=== PATIENT | female | born 1975 | race Caucasian/White ===

== ENCOUNTER 2017-10-03 19:10 | Emergency (ER) | payer OTHER ==
[2017-10-03] MEDS: METHYLPREDNISOLONE 125 MG INJ IV (19:46)
[2017-10-03] MEDS: ONDANSETRON 4 MG INJ IV ×2 (19:46→20:55)
[2017-10-03] MEDS: HYDROmorphONE 0.5 MG/0.5 ML SYG IV ×2 (19:46→20:52)
[2017-10-03] MEDS: SOD CHLORIDE 0.9% 1,000 ML IV (19:47)
[2017-10-03 19:48] LABS: ADD MAN DIFF? NO
[2017-10-03 19:50] LABS: BASOPHILS % 0.5 % (0.0-2.0); EOSINOPHILS # 0.2 10^3/ul (0.0-0.5); EOSINOPHILS % 2.6 % (0.0-7.0); HEMATOCRIT 38.9 % (37.0-47.0); HEMOGLOBIN 13.3 g/dl (12.0-16.0); LYMPHOCYTES # 2.7 10^3/ul (0.8-2.9); LYMPHOCYTES % 35.8 % (15.0-51.0); MEAN CORPUSCULAR HEMOGLOBIN 30.5 pg (29.0-33.0); MEAN CORPUSCULAR HGB CONC 34.2 g/dl (32.0-37.0); MEAN CORPUSCULAR VOLUME 89.2 fl (82.0-101.0); MEAN PLATELET VOLUME 9.1 fl (7.4-10.4); MONOCYTE # 0.8 10^3/ul (0.3-0.9); MONOCYTES % 10.4 % (0.0-11.0); NEUTROPHIL # 3.8 10^3/ul (1.6-7.5); NEUTROPHILS % 50.6 % (39.0-77.0); PLATELET COUNT 323 10^3/UL (140-415); RED BLOOD COUNT 4.36 10^6/ul (4.20-5.40); RED CELL DISTRIBUTION WIDTH 12.3 % (11.5-14.5)
[2017-10-03 19:50] LABS: WHITE BLOOD COUNT 7.4 10^3/ul (4.8-10.8)
[2017-10-03 20:10] LABS: ALANINE AMINOTRANSFERASE 34 IU/L (13-69); ALBUMIN 4.2 g/dl (3.3-4.9); ALBUMIN/GLOBULIN RATIO 1.35; ALKALINE PHOSPHATASE 73 IU/L (42-121); ANION GAP 16 (8-16); ASPARTATE AMINO TRANSFERASE 32 IU/L (15-46); BILIRUBIN,INDIRECT 0.1 mg/dl (0-1.1); BILIRUBIN,TOTAL 0.1 mg/dl (0.2-1.3); BLOOD UREA NITROGEN 18 mg/dl (7-20); CARBON DIOXIDE 26 mmol/L (21-31); CHLORIDE 106 mmol/L (97-110); CREATININE 0.62 mg/dl (0.44-1.00); GLUCOSE 102 mg/dl (70-220); POTASSIUM 3.9 mmol/L (3.5-5.1); SODIUM 144 mmol/L (135-144); TOTAL PROTEIN 7.3 g/dl (6.1-8.1)
[2017-10-03 21:35] LABS: ERYTHROCYTE SEDIMENTATION RATE 12 mm/Hr (0-20)
== END 2017-10-03 21:50 | disposition home or self-care (01) ==
LOC: FTE 19:10
DX: M25.50 Pain in unspecified joint (principal); B34.9 Viral infection, unspecified
CPT/HCPCS: 36415; 80053; 85025; 85651; 96374; 96375; 96376; 99284-25

== ENCOUNTER 2017-11-24 16:31 | Emergency (ER) | payer SELFPAY, OTHER | END 2017-11-24 17:38 | disposition home or self-care (01) | LOC: E/R 16:31 | DX: B34.9 Viral infection, unspecified (principal); J32.9 Chronic sinusitis, unspecified; H92.03 Otalgia, bilateral | CPT/HCPCS: 99284 ==

== ENCOUNTER 2018-02-19 22:00 | Emergency (ER) | payer OTHER | END 2018-02-19 23:03 | disposition home or self-care (01) | LOC: FTE 22:00 | DX: J02.9 Acute pharyngitis, unspecified (principal) | CPT/HCPCS: 99283; Z7502 ==

== ENCOUNTER 2018-02-28 11:36 | Emergency (ER) | payer OTHER | END 2018-02-28 12:45 | disposition home or self-care (01) | LOC: FTE 11:36 | DX: J06.9 Acute upper respiratory infection, unspecified (principal) | CPT/HCPCS: 99283; Z7502 ==

== ENCOUNTER → 2018-05-12 | Emergency (ER) | payer OTHER ==
[2018-05-12] MEDS: LIDOCAINE/MYLANTA 40 ML BTL PO (15:01)
[2018-05-12] MEDS: ACETAMINOPHEN 500 MG TAB PO (15:02)
[2018-05-12] MEDS: FAMOTIDINE 20 MG TAB PO (15:02)
== END | disposition home or self-care (01) ==
LOC: E/R 14:05
DX: R10.13 Epigastric pain (principal); R40.2142 Coma scale, eyes open, spontaneous, at arrival to emergency department; R40.2362 Coma scale, best motor response, obeys commands, at arrival to emergency department; R40.2252 Coma scale, best verbal response, oriented, at arrival to emergency department
CPT/HCPCS: 99282; Z7502

== ENCOUNTER 2018-09-21 21:11 | Emergency (ER) | payer SELFPAY, OTHER | END 2018-09-21 23:10 | disposition left against medical advice (07) | LOC: FTE 21:11 | DX: Z53.21 Procedure and treatment not carried out due to patient leaving prior to being seen by health care provider (principal) ==

== ENCOUNTER 2018-12-28 16:31 | Emergency (ER) | payer OTHER ==
[2018-12-28] MEDS: DEXAMETHASONE 10 MG/ML 1 ML INJ IM (20:50)
[2018-12-28] MEDS: KETOROLAC 30 MG INJ IM (20:50)
== END 2018-12-28 21:32 | disposition home or self-care (01) ==
LOC: FTE 16:31
DX: R51 Headache (principal)
CPT/HCPCS: 96372; 99284-25; J1100